=== PATIENT | male | born 1945 | race Caucasian/White ===

== ENCOUNTER 2016-07-05 10:28 | Emergency (ER) | payer MEDICARE ==
--- NOTE | ~2016-07-05 | CT57 ---
[facility] A Service of [facility] RADIOLOGY TEXT RESULTS PATIENT: ELIZA LEHMAN LOCATION: [facility] : 45 UNIT #: [id number] AGE: [address]: Jorge Monroe MD SEX: M ORDER DR: [id number] [facility] [address] [place], [place] [address] [id number] E MR#: [id number] Acc #: [id number] NAME: ELIZA LEHMAN. : 1945 SEX: M STUDY DATE/TIME: 07/05/2016 10:54 UNIT: [facility] ROOM: STUDY DESCRIPTION: CT Chest Wo Cont Attending Physician: Jorge Monroe M.D. Ordering Physician: Jorge Monroe M.D. Primary Care Physician: Ashok Morgan M.D. MEDICAL IMAGING REPORT This report is preliminary unless electronic signature is present EXAM CT of the chest without contrast INDICATIONS Fall on Wednesday, left lower anterior rib pain, hypertension. TECHNIQUE CT of the chest was performed without contrast. Coronal and sagittal reformatted images were obtained. This CT exam was performed with one or more of the following radiation dose reduction techniques: automatic exposure control, adjustment of mA and/or kV according to patient size, and iterative reconstruction. COMPARISON No comparison chest CTs are available. FINDINGS There is atelectasis in the base of the left lower lobe and minimal atelectasis in the base of the right lower lobe. Minimal linear atelectasis in the bases of the right middle lobe and lingula. There is no airspace infiltrate or suspicious pulmonary nodule. There is no lymphadenopathy or pleural effusion. Tiny hiatal hernia. Limited imaging of the upper abdomen demonstrates multiple tiny cysts in the liver. Probable cholelithiasis. Tiny nonobstructing stone left kidney. Large cysts left kidney. The bone windows show no acute osseous abnormality. IMPRESSION 1. No evidence for rib fracture. 2. Bilateral lung base atelectasis, greatest in the left lower lobe. 3. Additional findings as described above. Dictated by... [facility] A Service of [facility] RADIOLOGY TEXT RESULTS PATIENT: ELIZA LEHMAN LOCATION: [facility] #: [id number] : 45 UNIT #: [id number] AGE: [address]: Jorge Monroe MD SEX: M ORDER DR: Vijay Banuelos M.D. THIS IS AN ELECTRONICALLY VERIFIED REPORT Vijay Banuelos M.D. at 07/06/2016 4:34 PM KVNG/neeta TD: 07/05/2016 13:20 JOB #: [id number] MEDICAL IMAGING REPORT Page 1 of 1 COPY
[~2016-07-05 10:28] MED LIST: ALPRAZOLAM0.25 MG PO; AZILECT1 MG PO; BACTRIM DS TABL1 TA1 PO; BP MED PO; BYSTOLIC10 MG PO; BYSTOLIC5 MG PO; CARBIDOPA-LEVO1 EAC3 PO; CARBIDOPA-LEVO1 EAC5 PO; CLIDINIUM-CDP C1 CAP PO; ELDEPRYL5 MG PO; ESOMEPRAZOLE MA40 MG; ESOMEPRAZOLE MAGNESIUM PO; FLOMAX0.4 M1 PO; LASIX PO; LIPITOR40 MG PO; LOTREL 10/20 MG1 CAP PO; LOTREL 10/40 MG1 CAP PO; METOPOLOL PO; NEURONTIN100 MG PO; NEXIUM PO; ONDANSETRON4 MG/TAB PO; PROTONIX PO; PYRIDIUM PO; SERTRALINE HCL50 M1 PO; TYLOX 5-500 MG1 EACH PO; VITORIN PO; VYTORIN 10/10 T1 TAB PO
== END 2016-07-05 12:50 | disposition home or self-care (01) ==
LOC: CED 10:28
DX: S20.212A Contusion of left front wall of thorax, initial encounter (principal); I10 Essential (primary) hypertension; Z98.890 Other specified postprocedural states; W01.0XXA Fall on same level from slipping, tripping and stumbling without subsequent striking against object, initial encounter; Y92.009 Unspecified place in unspecified non-institutional (private) residence as the place of occurrence of the external cause
CPT/HCPCS: 71250; 99284

== ENCOUNTER → 2016-08-21 | Outpatient (CLI) | payer MEDICARE, BC ==
--- NOTE | ~2016-08-21 | MR18 ---
[facility] A Service of [facility] RADIOLOGY TEXT RESULTS PATIENT: ELIZA LEHMAN LOCATION: [facility] : 45 UNIT #: [id number] AGE: [address]: OLIVIA HOOK MD SEX: M ORDER DR: [id number] [facility] [address] [place], [place] [address] [id number] O MR#: [id number] Acc #: [id number] NAME: ELIZA LEHMAN : 1945 SEX: M STUDY DATE/TIME: 08/21/2016 17:13 UNIT: [facility] ROOM: STUDY DESCRIPTION: MR Brain Wo Contrast Attending Physician: Olivia Hook M.D. Ordering Physician: Olivia Hook M.D. Primary Care Physician: Ashok Morgan M.D. MRI CENTER REPORT This report is preliminary unless electronic signature is present. EXAM MRI of the brain without contrast dated 08/21/[address] head without contrast dated 05/20/2015. HISTORY Parkinson's disease for 5 years. Three episodes of memory loss a couple months ago. FINDINGS Multisequence, multiplanar imaging of the brain was obtained without contrast. No acute stroke, space-occupying intracranial mass, mass effect, midline shift or hydrocephalus. Scattered hyperintense T2-signal lesions are noted in the subcortical and periventricular white matter. Thick slices through the sella with the pituitary gland, pineal region and upper cervical spine do not demonstrate any significant abnormality. Postcontrast sequences were not obtained as per the referring physician's request. S-shaped nasal septal deviation is noted. Paranasal sinuses and mastoid air cells are unremarkable except for minimal left mastoid mucosal thickening. Status post bilateral cataract surgery. IMPRESSION 1. Scattered few hyperintense T2-signal lesions are noted in the brain involving the subcortical and periventricular white matter. Relatively larger lesion measures 1.4 cm in the left frontal centrum semiovale. These are nonspecific. Based on age and statistics, it could be related to mild chronic microvascular ischemic change. 2. Without contrast, enhancing lesions cannot be evaluated. 3. Mid brain does not demonstrate any obvious abnormality in the current imaging. [facility] A Service of [facility] RADIOLOGY TEXT RESULTS PATIENT: ELIZA LEHMAN LOCATION: [facility] : 45 UNIT #: [id number] AGE: [address]: OLIVIA HOOK MD SEX: M ORDER DR: Dictated by... Janis Ward M.D. THIS IS AN ELECTRONICALLY VERIFIED REPORT Janis Ward M.D. at 08/24/2016 5:14 PM CPR/dianne TD: 08/24/2016 12:53 JOB #: [id number] MRI CENTER REPORT Page 1 of 1 COPY
== END | disposition home or self-care (01) ==
LOC: CMRI 14:50
DX: G20 Parkinson's disease (principal); R90.82 White matter disease, unspecified; G93.9 Disorder of brain, unspecified
CPT/HCPCS: 70551